=== PATIENT | male | born 1955 | race Caucasian/White ===

== ENCOUNTER 2022-01-18 17:59 | Emergency (ER) | payer BC, SELFPAY ==
--- NOTE | 2022-01-18 18:02 | ED.EAR ---
HPI - Ear Problem General Chief complaint: Ear Stated complaint: Ear Pain Time Seen by Provider: 01/18/22 18:02 Source: patient Mode of arrival: ambulatory Limitations: no limitations History of Present Illness HPI Narrative: Mr. Nino is a 66-year-old male patient presenting to the clinic today with complaints of left ear pain x2 days. He reports that he just came back from [place] today. He has been doing a lot of swimming. He reports he feels as though his hearing is muffled and he is having pain. Related Data Home Medications Medication Instructions Recorded Confirmed lamotrigine 100 mg tablet 100 mg PO DAILY 06/29/19 01/18/22 levetiracetam 1,000 mg tablet 1,000 mg PO DAILY 06/29/19 01/18/22 Allergies Allergy/AdvReac Type Severity Reaction Status Date / Time Penicillins Allergy Unknown Hives Verified 01/18/22 18:14 Review of Systems Review of Systems: Pertinent positives per HPI. Patient denies any fever, chills, rash, headache, visual changes, dizziness, cough, runny nose, sore throat, shortness of breath, chest pain, palpitations, nausea, vomiting, diarrhea, constipation, abdominal pain, or any urinary issues. [facility] Past Medical History Medical History (Updated 01/18/22 @ 18:25 by Sukhi Deshpande APRN) Asthma Exertional shortness of breath History of tobacco abuse HTN (hypertension) Hypercholesterolemia Overweight (BMI 25.0-29.9) Seizure Family History Family History Father Family history of heart disease in male family member before age 55 Patient's father is Mother Hypertension Sibling Asthma Other Cerebrovascular accident Diabetes mellitus Family history of cardiovascular disease Social History Social History Smoking status: Former smoker Second hand tobacco smoke exposure: No Smoking end date: 08/04/92 Alcohol intake: current Comments At the time of my signature, I reviewed and agree with the nursing past medical, surgical, social, and family history. There is no relevant family history pertinent to the patient complaint. Exam Narrative: General: Well-developed, well nourished, in no apparent distress Head: Normocephalic, atraumatic Eyes: Pupils equally round and reactive to light bilaterally, EOM intact, sclera and conjunctive clear, no discharge, lids normal Ears: Right TMs intact and clear, right ear canals clear, left ear canal swollen with white exudate, unable to visualize the left TM, hearing normal. Nose: Nares patent, no discharge, no inflammation, no sinus tenderness. Mouth: Oropharynx without lesions or masses, good dentition, MMM. Neck: Supple, trachea midline, no enlargement of anterior or posterior cervical nodes, no thyroid masses or goiter palpable. Cardio: Regular rate and rhythm, s1 and s2 normal, no murmur appreciated. Resp: Clear to auscultation bilaterally anteriorly and posteriorly, no rhonchi, rales, wheezing or rubs Course Course Emergency Course: Portions of this record may have been created with voice recognition software. Level of Care: Express Care Visit Vital Signs Vital signs: Vital Signs Temperature 36.9 C 01/18/22 18:14 Pulse Rate 85 01/18/22 18:14 Respiratory Rate 16 01/18/22 18:14 Blood Pressure 158/85 H 01/18/22 18:14 Pulse Oximetry 95 01/18/22 18:14 Oxygen Delivery Room Air 01/18/22 18:14 Temperature 36.9 C 01/18/22 18:14 Pulse Rate 85 01/18/22 18:14 Respiratory Rate 16 01/18/22 18:14 Blood Pressure 158/85 H 01/18/22 18:14 Pulse Oximetry 95 01/18/22 18:14 Oxygen Delivery Room Air 01/18/22 18:14 Vital signs reviewed Medical Decision Making MDM Narrative Medical decision making narrative: At the time of visit patient is resting comfortably on the exam table. He has left otitis externa. I will treat with a course of ofloxacin
[2022-01-18 18:14] VITALS: BP 158/85; PULSE 85; RESP 16; TEMP 36.9; O2SAT 95
== END 2022-01-18 18:32 | disposition home or self-care (01) ==
PROVIDERS: Emergency Provider Nurse Practitioner Family; PCP Internal Medicine
DX: H60.392 Other infective otitis externa, left ear (principal); Z87.891 Personal history of nicotine dependence; J45.909 Unspecified asthma, uncomplicated; I10 Essential (primary) hypertension; E78.00 Pure hypercholesterolemia, unspecified; G40.909 Epilepsy, unspecified, not intractable, without status epilepticus
CPT/HCPCS: 99213; G0463

== ENCOUNTER 2023-06-19 08:07 | Outpatient (CLI) | payer MEDICARE, SELFPAY ==
--- NOTE | ~2023-06-19 | XR_ITS ---
EXAMINATION: XR small bowel follow through DATE: 06/19/2023 13:14 INDICATION: Chronic diarrhea. TECHNIQUE: Oral contrast was administered, and a time course of radiographs of the abdomen was obtain ed. Fluoroscopy of the small bowel was not performed. Fluoroscopy exposure time was 0 minutes. The to serafin number of images was 10. COMPARISON: Chest CT 07/16/2018 FINDINGS: There are multiple dilated loops of small bowel. At 4.5 hours, contrast has not progressed beyond pro ximal ileum. There is fold thickening of loops of ileum. The colon is decompressed. There is a total left hip arthroplasty. IMPRESSION: 1. Dilated small bowel with slow transit of contrast that has only reached the proximal ileum at 4.5 hours. These findings may be adynamic ileus or small bowel obstruction. Consider CT abdomen and pelvi s with contrast. Reviewed, dictated and finalized at location A. TICS MANAGER IMPRESSION: 1. Dilated small bowel with slow transit of contrast that has only reached the proximal ileum at 4.5 hours. These findings may be adynamic ileus or small dilshad l obstruction. Consider CT abdomen and pelvis with contrast.
== END 2023-06-19 08:08 | disposition home or self-care (01) ==
PROVIDERS: PCP Internal Medicine; Visit Provider Internal Medicine Gastroenterology
DX: R19.7 Diarrhea, unspecified (principal); K59.89 Other specified functional intestinal disorders
CPT/HCPCS: 74250

== ENCOUNTER 2023-07-03 09:31 | Outpatient (CLI) | payer MEDICARE, SELFPAY ==
--- NOTE | ~2023-07-03 | CT_ITS ---
CT of the Abdomen and Pelvis: Indication: Abdominal pain, diarrhea Technique: 2.5 mm axial scans were obtained through the abdomen and pelvis following intravenous adm inistration of 100 cc of Omnipaque 350. Dose reduction technique was used on this scan by utilizing a utomated exposure control and iterative reconstruction technique. The dose-length product (DLP) was 7 28.17 mGy-cm. Findings: Scans through the lung bases are unremarkable. The liver, spleen, pancreas, and adrenal glands are within normal limits. Bilateral parapelvic renal cysts are present. Gallbladder is absent. There are atherosclerotic calcifications of the aorta. Ther e is apparent occlusion of the majority of the left common iliac artery. No lymphadenopathy. No bowel obstruction or bowel wall thickening. There is no evidence to suggest acute appendicitis. Images through the pelvis are mildly degraded by streak artifact from left hip arthroplasty. Urinary bladder unremarkable. Prostate gland mildly enlarged. No ascites. Impression: No acute abnormality identified. 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 Enlarged prostate gland. Reviewed, dictated and finalized at [facility]. CE REPAIR TECHNICIAN Impression: No acute abnormality identified. 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 Enlarged prostate gland.
[2023-07-03 09:49] LABS: Estimated Glomerular Filt Rate 38
== END 2023-07-03 09:32 | disposition home or self-care (01) ==
LOC: ANHIMG 09:36
PROVIDERS: PCP Internal Medicine; Visit Provider Internal Medicine Gastroenterology
DX: R19.7 Diarrhea, unspecified (principal); N40.0 Benign prostatic hyperplasia without lower urinary tract symptoms
CPT/HCPCS: 74177; Q9967

== ENCOUNTER 2023-08-05 13:33 | Emergency (ER) | payer MEDICARE, SELFPAY ==
--- NOTE | 2023-08-05 13:40 | ED.SKABFB ---
HPI - Skin/Abscess/Foreign Bdy General Chief complaint: Wound/Laceration Stated complaint: Rash Time Seen by Provider: 08/05/23 13:40 Source: patient Mode of arrival: ambulatory Limitations: no limitations History of Present Illness HPI narrative: Patient is a 67-year-old male who presents with bite vania to right buttocks. [place] he was bit. Patient states area of tenderness has grown. Patient states states the redness has side as well. Have been applying Neosporin. Denies any drainage from wound. Related Data Home Medications Medication Instructions Recorded Confirmed lamotrigine 100 mg tablet 100 mg PO DAILY 06/29/19 08/05/23 levetiracetam 1,000 mg tablet 1,000 mg PO DAILY 06/29/19 08/05/23 fexofenadine 60 mg tablet (Margy 60 mg PO Q12H 09/16/22 08/05/23 Allergy) albuterol sulfate 90 mcg/actuation 1 - 2 puff inhalation Q4-6H 08/05/23 08/05/23 aerosol inhaler shortness of breath or wheezing topiramate 25 mg sprinkle capsule 25 mg PO DIRECTED 08/05/23 08/05/23 Allergies Allergy/AdvReac Type Severity Reaction Status Date / Time Penicillins Allergy Unknown Hives Verified 08/05/23 13:52 Review of Systems Review of Systems: All systems reviewed & are unremarkable except as noted in HPI and below Constitutional: Constitutional: Denies body ache(s), Denies chills, Denies fatigue, Denies fever(s), Denies headache(s), Denies malaise and Denies weakness Eyes: Eyes: Denies blurry vision, Denies irritation and Denies loss of vision ENT: Denies otalgia, Denies headache(s), Denies nasal discharge, Denies sinus pain and Denies sore throat Cardiovascular: Cardiovascular: Denies chest pain, Denies irregular heart rhythm and Denies dyspnea Respiratory: Respiratory: Denies dyspnea Gastrointestinal: Gastrointestinal: Denies abdominal pain, Denies melena, Denies hematochezia, Denies diarrhea, Denies nausea and Denies vomiting Musculoskeletal: Musculoskeletal: Denies back pain, Denies myalgias and Denies arthralgias Integumentary/Breasts: Skin/Breast: Denies pruritus, Denies rash and Reports wounds Neurologic: Denies headache(s), Denies loss of vision and Denies weakness Psychiatric: Psychiatric: Reports no additional psychiatric complaints Endocrine: Endocrine: Denies fatigue PMFSH Past Medical History Medical History Asthma Exertional shortness of breath History of tobacco abuse HTN (hypertension) Hypercholesterolemia Overweight (BMI 25.0-29.9) Seizure Family History Family History Father Family history of heart disease in male family member before age 55 Patient's father is Mother Hypertension Sibling Asthma Other Cerebrovascular accident Diabetes mellitus Family history of cardiovascular disease Social History Social History Smoking status: Former smoker Second hand tobacco smoke exposure: No Smoking end date: 08/04/92 Alcohol intake: current Substance use: never Lack of Transportation: No Lack of Food: Never True Current Housing: Decline to Answer Concerned About Future Housing: No Difficulty Paying Gas/Electric Bills: No Difficulty Paying for Meds: No Currently Unemployed: No Education: High School Diploma/GED Difficulty w/ Childcare or Family Care: No Comments At time of signature, agree with nursing past medical, surgical, social and family history. There is no relevant family history pertinent to the presenting complaint. Exam Const: General: cooperative, healthy appearing, comfortable, no acute distress and well nourished Nutritional Appearance: well nourished Orientation/consciousness: patient oriented x3 Limitations: no limitations HENMT: Head: normal to inspection, normocephalic and atraum
[2023-08-05 13:47] VITALS: BP 120/62; PULSE 76; RESP 16; TEMP 36.6; O2SAT 99
== END 2023-08-05 14:22 | disposition home or self-care (01) ==
PROVIDERS: Emergency Provider Nurse Practitioner Family; PCP Internal Medicine
DX: L03.317 Cellulitis of buttock (principal); I10 Essential (primary) hypertension; Z79.899 Other long term (current) drug therapy; Z87.891 Personal history of nicotine dependence
CPT/HCPCS: 99213; G0463

== ENCOUNTER 2025-02-23 12:54 | Outpatient (CLI) | payer MEDICARE, SELFPAY ==
--- NOTE | ~2025-02-23 | XR_ITS ---
XR abdomen/kub 1V 02/23/2025 13:17 Indication: Irritable bowel syndrome Procedure: KUB Comparison: 06/19/2023 Findings: Bowel gas pattern nonobstructive. There is a left total hip arthroplasty. No evidence for r enal stones. Mild lumbar spondylosis. No acute osseous abnormality. There are pelvic phleboliths. Impression: 1: Nonobstructive bowel gas pattern. Reviewed, dictated and finalized at location A. Impression: 1: Nonobstructive bowel gas pattern.
--- OUTSIDE RECORDS SUMMARY | 2025-02-23 13:06 | XMS_ITS | Encounter Summary ---
Author Organization [facility] Address [address] [place] [address] Care Team Providers Care Medical Sales Consultant Name Role Phone Mark Cadet MD Unavailable [phone] eZv Valente MD Primary Care Provider [phone] Encounter Details Date Type Department Care Team (Late st Contact Info) Description 08/09/2021 Telephone [facility] Radiology [address] [place] [address] Junior Webber MD PhD [address] [place], [place] [id number] Social History Tobacco Use Types Packs/Day Years Used Date Smoking Tobacco: Former Cigarettes 0.3 20 1 969 - 1989 Smokeless Tobacco: Never Alcohol Use Standard Drinks/Week Comments Yes 0 (1 standard drink = 0.6 oz pur e alcohol) AUDIT-C Answer Date Recorded Q1: How often do you have a drink containing alc ohol? 2-4 times a month 07/12/2021 Q2: How many drinks containi ng alcohol do you have on a typical day when you are drinking? 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
--- OUTSIDE RECORDS SUMMARY | 2025-02-23 13:06 | XMS_ITS | Clinical Summary ---
Author Organization [facility] Address [address] [place] [address] Care Team Providers Care Marine Photographer Name Role Phone Mark Cadet MD Unavailable [phone] Zev Valente MD Primary Care Provider [phone] Allergies Active Allergy Reactions Criticality Noted Date Comments Penicillins Hives Medium 06/02/2019 Medications lisinopril (PRINIVIL,ZESTR IL) 10 mg tablet Take 1 tablet (10 mg total) by mouth daily 3 03/29/[address] (ACIPHEX) 20 mg EC tablet Take 1 tablet (20 mg total) by mouth daily Active Anoro Ellipta 62.5-25 mcg/actuation blister with device 1 puff daily 09/23/19 22 Active aspirin 81 mg enteric coated tabletIndicatio ns:Cerebrovascu lar accident (CVA), unspecified mechanism (HCC) TAKE 1 BY MOUTH ONCE DAILY 90 tablet 03/24/20 23 Active albuterol HFA (PROVENTIL HFA,VENTOLIN HFA,PROAIR HFA) 90 mcg/actuation inhaler INHALE 1 TO 2 PUFFS BY MOUTH EVERY 4 TO 6 HOURS NEEDED FOR SHORTNESS OF BREATH FOR WHEEZING 05/21/20 23 Active atorvastatin (LIPITOR) 80 mg tablet Take 1 tablet by mouth once daily 90 tablet 09/22/19 24 Active lamoTRIgine (LaMICtal) 100 mg tabletIndicatio ns:Focal epilepsy with impairment of consciousness, intractable (HCC) Take 3 tablets (300 mg total) by mouth 2 (two) times a day 540 tablet 3 01/27/20 25 026 Active levETIRAcetam (KEPPRA) 1,000 mg tabletIndicatio ns:Complex partial 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-clonic seizures (HCC) Take 2.5 tablets (2,500 mg total) by mouth 2 (two) times a day 450 tablet 3 01/27/20 25 026 Active topiramate (TOPAMAX) 25 mg capsuleIndicati ons:Focal epilepsy with impairment of consciousness, intractable (HCC) Take 2 capsules (50 mg total) by mouth 2 (two) times a day 360 capsule 3 01/27/20 25 026 Active ergocalciferol (VITAMIN D) 50,000 unit capsule 3 05/12/20 19 025 Discontinued lamoTRIgine (LaMICtal) 100 mg tabletIndicatio ns:Focal epilepsy with impairment of consciousness, intractable (HCC) Take 3 tablets (300 mg total) by mouth 2 (two) times a day 540 tablet 3 07/07/20 24 025 Discontinued(Re order) levETIRAcetam (KEPPRA) 1,000 mg tabletIndicatio ns:Complex partial 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-clonic seizures (HCC) Take 2.5 tablets (2,500 mg total) by mouth 2 (two) times a day 450 tablet 3 07/07/20 24 025 Discontinued(Re order) topiramate (TOPAMAX) 25 mg capsuleIndicati ons:Focal epilepsy with impairment of consciousness, intractable (HCC) Take 2 capsules (50 mg total) by mouth 2 (two) times a day 360 capsule 3 07/07/20 24 025 Discontinued(Re order) Active Problems Problem Noted Date Diagnosed Date History of ischemic stroke 07/22/2023 Focal epilepsy with impairme nt of consciousness, intractable 05/30/2020 Assessment & Plan (05/30/2021 8:57 AM CDT): Patient continues on lamotrigine 200 mg b.i.d. and levetiracetam 2000 mg b.i.d. for complex partial seizure secondary generalization. He sites no tolerability issues and reports regular medical compliance. Despite continued treatment he is having recurrent stereotyped episodes of visual blurring followed by altered awareness clinically suspicious for ongoing complex partial seizure. After further discussion with at this visit as well as prior visits, I will pursue a tertiary epilepsy evaluation to see if these episodes may in fact be complex partial seizures. Previous EEGs have been unrevealing as have MRIs. I will refer him to [facility] epilepsy service for further investigation. He will follow-up in general neurology clinic based on the results in outcome of his epilepsy evaluation. In the interim I have refilled both his lamotrigine and levetiracetam at present dosing. Assessment & Plan (05/30/2020 10:56 AM CDT): Patient is a former patient of [facility]. Prior medical records from [facility] have been reviewed during today's visit with patient to facilitate transfer in care. Since last seen a [facility] earlier this year, he has been using lamotrigine 150 mg b.i.d. in addition to levetiracetam 2000 mg b.i.d.. Despite regular medical compliance he still had several additional partial complex seizures. He knows of no alleviating or exacerbating factors. He develops no warning prior to the events. A couple of the episodes have been witnessed by his spouse. Given the persistence and seizures I will further increase his lamotrigine to 200 mg b.i.d. maintaining his levetiracetam in 2000 mg b.i.d.. I did review with him [place] driving restrictions and that he needs to fulfill 6 months seizure-free before resuming driving under [place] guidelines. I will plan on seeing him back in 1 years time period if he would have additional seizures in the interim he is to let this office know. If he does continue to have seizures despite dual therapy, he will likely need referral to a tertiary epilepsy center for further investigation. Thrombocytopenia, unspecified 06/01/2019 Hyperlipidemia 10/07/2017 Hypertensive disorder 10/07/2017 Encounters Date Type Department Care Team Description 01/26/2025 2:00 PM CDT Office Visit [facility] Epilepsy [facility] [address] 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-clonic seizures (HCC) from Last 3 Months Immunizations Immunization Administration Dates Next Due Influenza Virus Vaccine Trivalent 04/04/2019 Surgical History Surgery Date Site/Laterality Comments HIP SURGERY Left GALLBLADDER SURGERY CATARACT EXTRACTION Bilateral Medical History Medical History Date Comments Hypertension Hypercholesteremia Epilepsy (HCC) Acid reflux Stroke (HCC) 07/22/2023 Cataract Bilateral Family History Medical History Relation Name Comments Asthma Brother Diabetes Father Heart attack Father Heart disease Father Hyperlipidemia Mother Hypertension Mother Stroke Mother Epilepsy Neg Hx Relation Name Status Comments Brother Alive Father Mother Social History Tobacco Use Types Packs/Day Years Used Date Smoking Tobacco: Former Cigarettes 0.3 20 1 969 - 1988 Smokeless Tobacco: Never Alcohol Use Standard Drinks/Week [...] on file 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 Gender Identity Not on file Sexual Orientation Not on file 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 Not on file Not on file Obstetrics History Last Filed Vital Signs Vital Sign Reading Time Taken Comments Blood Pressure 109/68 01/26/2025 1:51 PM CDT Pulse 71 01/26/2025 1:51 PM CDT Temperature 36.6 C (97.9 F) 01/26/2025 1:51 PM CDT Respiratory Rate 16 06/02/2019 2:59 PM CDT Oxygen Saturation 97% 01/26/2025 1:51 PM CDT Inhaled Oxygen Concentration - - Weight 86.6 kg (191 lb) 01/26/2025 1:51 PM CDT Height 170.2 cm (5' 7) 01/26/2025 1:51 PM CDT Body Mass Index 29.91 01/26/2025 1:51 PM CDT Plan of Treatment Health Maintenance Due Date Last Done Comments Colon Cancer Screening-Colonoscopy 1957 Depression Screening 1957 Fall Risk Assessment 1957 Hepatitis C Screening 1957 Prostate Cancer Screening-PSA 1957 DTaP/Tdap/Td Vaccine (1 - Tdap) 1968 Hepatitis B Screening 10/16/1975 Pneumococcal vaccine 65+ (1 of 1 - PCV) 10/16/2007 Zoster Vaccine (1 of 2) 10/16/2007 Abdominal Aortic Aneurysm (A AA) Screen 2022 Well Visit 65+ 2022 Influenza Vaccine (Season Ended) 2025 04/12/2020, 04/04/2019, 07/02/2018, Additional history exists Insurance [place] CHOICE [facility] [place] AETNA SENIOR SUPPLEMENT Care Teams Marine Photographer Relationship Specialty Start Date End Date Zev Valente MD [address] [place] [address] PCP - General Internal Medicine 06/14/19 Mark Cadet MD Medical Oncologist/Returner Hematology and Oncology 06/01/19
--- OUTSIDE RECORDS SUMMARY | 2025-02-23 13:06 | XMS_ITS | Referral Summary ---
Author Organization [facility] Address [address] [place] [address] Care Team Providers Care Core Setter Name Role Phone Mark Cadet MD Unavailable [phone] Zev Valente MD Primary Care Provider [phone] Encounters Date Type Department Care Team Description 01/26/2025 2:00 PM CDT Office Visit [facility] Epilepsy [address] [place] [id number] Junior Webber MD PhD Focal epilepsy with impairment of consciousness, intractable (HCC) (Primary Dx); Complex partial 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-clonic seizures (HCC) from Last 3 Months Allergies Active Allergy Reactions Criticality Noted Date [...] have MRIs. I will refer him to [facility] epilepsy service for further investigation. He will follow-up in general neurology clinic based on the results in outcome of his epilepsy evaluation. In the interim I have refilled both his lamotrigine and levetiracetam at present dosing. Assessment & Plan (05/30/2020 10:56 AM CDT): Patient is a former patient of [facility]. Prior medical records from [facility] have been reviewed during today's visit with patient to facilitate transfer in care. Since last seen a [facility] earlier this year, he has been [...] mg b.i.d.. I did review with him [place] driving restrictions and that he needs to fulfill 6 months seizure-free before resuming driving under [place] guidelines. I will plan on seeing him back in 1 years time period if he would have additional seizures in the interim he is to let this office know. If he does continue to have seizures despite dual therapy, he will likely need referral to a tertiary epilepsy center for further investigation. 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
--- OUTSIDE RECORDS SUMMARY | 2025-02-23 13:06 | XMS_ITS | Continuity of Care Document ---
Author Organization [facility] Address [address] [place] [address] [address] [place] [address] Phone Care Team Providers Care Headstart Teacher Name Role Phone Dasia WHEELER MD, Buddy Unavailable Unavailable Procedures Procedure Date OFFICE/OUTPATIENT VISIT, [facility] DILATED EXAM RIGHT EYE DILATED EXAM LEFT EYE Advance Directives Directive Yes / No Effective Date File Name No Information Encounters Encounter Description Practice Location Reason(s) For Visit Diagnoses Date Provider Providers Copied on Encounter OFFICE/OUTPA TIENT VISIT, [facility], [address], [place], [place], [id number], tel:[phone] [facility] [place] No Information 5 Dasia Goodwin. [address] [facility], [address], [place], [place], [id number] , . tel:[phone] Referring Provider: Buddy Forman MD , [address] [facility] [address], [place], [address] . tel:[phone] Family History Family Member Type Diagnosis Age At Onset No Information Payers Payer name Insurance type Covered alliance party ID Authoriza tigeorges(s) AETNA CI [id number] Social History Type Description Quantity Date Captured [...]
[2025-02-23 13:48] LABS: Hematocrit 44.6 % (42.0-52.0); Hemoglobin 14.2 g/dL (14.0-18.0); Immature Platelet Fraction Pct 3.6 % (0.9-11.2); Mean Corpuscular HGB Conc 31.8 g/dl (32-36); Mean Corpuscular Hemoglobin 31.0 pg (26-34); Mean Corpuscular Volume 97.4 fl (80-100); Platelet Count Result 95 k/mm3 (150-375); Red Blood Count 4.58 M/mm3 (4.6-6.20); White Blood Count 5.9 K/mm3 (4.5-10.0)
[2025-02-23 14:08] LABS: Alanine Aminotransferase 52 U/L (6-50); Albumin Level 4.2 g/dL (3.5-5.1); Alkaline Phosphatase 90 U/L (38-126); Anion Gap 9 mmol/L (4-12); Aspartate Amino Transferase 40 U/L (17-59); Bilirubin,Total 0.4 mg/dL (0.2-1.3); Blood Urea Nitrogen 29 mg/dL (9-20); Calcium 9.9 mg/dL (8.4-10.2); Carbon Dioxide 23 mmol/L (22-30); Chloride 111 mmol/L (98-107); Estimated Glomerular Filt Rate 34; Glucose 99 mg/dL (65-110); Lipase 334 U/L (23-300); Potassium 4.2 mmol/L (3.4-5.0); Sodium 143 mmol/L (137-145); Total Protein 7.0 g/dL (6.3-8.2)
[2025-02-23 14:38] LABS: Thyroid Stimulating Hormone Reflex 2.620 uIU/mL (0.465-4.68)
[2025-02-23 14:50] LABS: CRP < 0.5 mg/dL (<1.0)
[2025-02-24 15:09] LABS: Deamidated Gliadin Abs, IgA 3 units (0-19); Deamidated Gliadin Abs, IgG 1 units (0-19); Immunoglobulin A, Qn 119 mg/dL (61-437)
== END 2025-02-23 12:55 | disposition home or self-care (01) ==
PROVIDERS: PCP Internal Medicine; Visit Provider Nurse Practitioner
DX: K58.0 Irritable bowel syndrome with diarrhea (principal); F90.9 Attention-deficit hyperactivity disorder, unspecified type; E78.5 Hyperlipidemia, unspecified
CPT/HCPCS: 36415; 74018; 80053; 82784; 83690; 84443; 85027; 85055; 85652; 86140; 86231; 86258

== ENCOUNTER 2025-04-01 15:04 | Outpatient (CLI) | payer MEDICARE, SELFPAY ==
--- OUTSIDE RECORDS SUMMARY | 2014-08-09 09:00 | XMS_ITS | Continuity of Care Document ---
Author Organization [facility] Address [id number] [place] [address] [address] [place] [address] Phone Care Team Providers Care Shaping Machine Tender Name Role Phone Dasia WHEELER MD, Buddy Unavailable Unavailable Procedures Procedure Date OFFICE/OUTPATIENT VISIT, [facility] DILATED EXAM RIGHT EYE DILATED EXAM LEFT EYE Advance Directives Directive Yes / No Effective Date File Name No Information Encounters Encounter Description Practice Location Reason(s) For Visit Diagnoses Date Provider Providers Copied on Encounter OFFICE/OUTPA TIENT VISIT, [facility], [address], [place], [place], [id number], tel:[phone] [facility] [place] No Information 5 Dasia Goodwin. [address], [address], [place], [place], [address] , . tel:[phone] Referring Provider: Buddy Forman MD , [address], [place], [address] . tel:[phone] Family History Family Member Type Diagnosis Age At Onset No Information Payers Payer name Insurance type Covered democrat ID Authoriza tigeorges(s) AETNA CI [id number] Social History Type Description Quantity Date Captured Comments Sex Male Smoking Status No Information Chief Complaint And Reason For Visit No Information Reason For Referral Reason For Referral No Information History Of Present Illness Encounter Date Complaint History Of Prese nt Illness No Information Functional Status Date Functional Assessmen t No Information Instructions Date Instruction Additional Infor mation No Information Assessments Type Assessment Date No Information Patient Care Teams Name Effective Dates (start - stop) Status Members No Information
--- OUTSIDE RECORDS SUMMARY | 2014-08-09 09:00 | XMS_ITS | Continuity of Care Document ---
Author Organization [facility] Address [address] [place] [address] [address] [place] [address] Phone Care Team Providers Care Field Naturalist Name Role Phone Dasia WHEELER MD, Buddy Unavailable Unavailable Procedures Procedure Date OFFICE/OUTPATIENT VISIT, [facility] DILATED EXAM RIGHT EYE DILATED EXAM LEFT EYE Advance Directives Directive Yes / No Effective Date File Name No Information Encounters Encounter Description Practice Location Reason(s) For Visit Diagnoses Date Provider Providers Copied on Encounter OFFICE/OUTPA TIENT VISIT, [facility], [address], [place], [place], [id number], tel:[phone] [facility] [place] No Information 5 Dasia Goodwin. [address], [address], [place], [place], [address] , . tel:[phone] Referring Provider: Buddy Forman MD , [address], [place], [address] . tel:[phone] Family History Family Member Type Diagnosis Age At Onset No Information Payers Payer name Insurance type Covered green party ID Authoriza tigeorges(s) AETNA CI [id number] Social History Type Description Quantity Date Captured [...]
--- NOTE | ~2025-04-01 | XR_ITS ---
XR knee LT 3V 04/01/2025 15:22 Indication: Left knee pain Procedure: 4 views left knee Comparison: 11/02/2018 Findings: There is an old healed distal femur fracture. There is severe osteoarthritis of the left knee. No acute fracture or traumatic malalignment. No joint effusion. Impression: 1: Severe tricompartment osteoarthritis of the left knee. Reviewed, dictated and finalized at location O. Impression: 1: Severe tricompartment osteoarthritis of the left knee.
--- OUTSIDE RECORDS SUMMARY | 2025-04-01 15:02 | XMS_ITS | Clinical Summary ---
Author Organization [facility] Address [address] [place] [address] Care Team Providers Care Tafe Registrar Name Role Phone Mark Cadet MD Unavailable Zev Valente MD Primary Care Provider [phone] Allergies Active Allergy Reactions Criticality Noted Date Comments Penicillins Hives Medium 06/02/2019 Medications lisinopril (PRINIVIL,ZESTRI L) 10 mg tablet Take 1 tablet (10 mg total) by mouth daily [address] (ACIPHEX) 20 mg EC tablet Take 1 tablet (20 mg total) by mouth daily Active Anoro Ellipta 62.5-25 mcg/actuation blister with device 1 puff daily 2 Active aspirin 81 mg enteric coated tabletIndication s:Cerebrovascula r accident (CVA), unspecified mechanism (HCC) TAKE 1 BY MOUTH ONCE DAILY 90 tablet 3 Active albuterol HFA (PROVENTIL HFA,VENTOLIN HFA,PROAIR HFA) 90 mcg/actuation inhaler INHALE 1 TO 2 PUFFS BY MOUTH EVERY 4 TO 6 HOURS NEEDED FOR SHORTNESS OF BREATH FOR WHEEZING 3 Active atorvastatin (LIPITOR) 80 mg tablet Take 1 tablet by mouth once daily 90 tablet 4 Active lamoTRIgine (LaMICtal) 100 mg tabletIndication s:Focal epilepsy with impairment of consciousness, intractable (HCC) Take 3 tablets (300 mg total) by mouth 2 (two) times a day 540 tablet 3 06/25/202 5 01/27/20 26 Active levETIRAcetam (KEPPRA) 1,000 mg tabletIndication s:Complex partial 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-clonic seizures (HCC) Take 2.5 tablets (2,500 mg total) by mouth 2 (two) times a day 450 tablet 3 5 01/27/20 26 Active topiramate (TOPAMAX) 25 mg capsuleIndicatio ns:Focal epilepsy with impairment of consciousness, intractable (HCC) Take 2 capsules (50 mg total) by mouth 2 (two) times a day 360 capsule 3 5 01/27/20 26 Active Active Problems Problem Noted Date Diagnosed Date [...] have MRIs. I will refer him to [facility] epilepsy service for further investigation. He will follow-up in general neurology clinic based on the results in outcome of his epilepsy evaluation. In the interim I have refilled both his lamotrigine and levetiracetam at present dosing. Assessment & Plan (05/30/2020 10:56 AM CDT): Patient is a former patient of [facility]. Prior medical records from [facility] have been reviewed during today's visit with patient to facilitate transfer in care. Since last seen a [facility] earlier this year, he has been [...] mg b.i.d.. I did review with him [place] driving restrictions and that he needs to fulfill 6 months seizure-free before resuming driving under [place] guidelines. 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
--- OUTSIDE RECORDS SUMMARY | 2025-04-01 15:02 | XMS_ITS | Encounter Summary ---
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 Gender Identity Not on file Sexual Orientation Not on file 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 Job 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
== END 2025-04-01 15:05 | disposition home or self-care (01) ==
PROVIDERS: PCP Internal Medicine; Visit Provider Internal Medicine
DX: M17.12 Unilateral primary osteoarthritis, left knee (principal)
CPT/HCPCS: 73562

== ENCOUNTER 2025-05-24 00:28 | Day surgery (SDC) | payer MEDICARE, SELFPAY ==
--- OUTSIDE RECORDS SUMMARY | 2014-08-09 09:00 | XMS_ITS | Continuity of Care Document ---
Author Organization [facility] Address [address] [place] [address] [address] [place] [address] Phone Care Team Providers Care Picker Operator Name Role Phone Dasia WHEELER MD, Buddy Unavailable Unavailable Procedures Procedure Date OFFICE/OUTPATIENT VISIT, [facility] DILATED EXAM RIGHT EYE DILATED EXAM LEFT EYE Advance Directives Directive Yes / No Effective Date File Name No Information Encounters Encounter Description Practice Location Reason(s) For Visit Diagnoses Date Provider Providers Copied on Encounter OFFICE/OUTPA TIENT VISIT, [facility], [address] [place] [address] [address], [place], [place], [id number], tel:[phone] [facility] [place] No Information 5 Dasia Goodwin. [address], [address], [place], [place], [id number] , . tel:[phone] Referring Provider: Buddy Forman MD , [address], [place], [address] . tel:[phone] Family History Family Member Type Diagnosis Age At Onset No Information Payers Payer name Insurance type Covered republican ID Authoriza tigeorges(s) AETNA CI [id number] Social History Type Description Quantity Date Captured [...]
[2025-05-18 16:21] VITALS: BMI 31.1
--- OUTSIDE RECORDS SUMMARY | 2025-05-24 00:30 | XMS_ITS | Encounter Summary ---
Author Organization [facility] Healthcare Address [address] [place] [address] Care Team Providers Care Rn Manager Name Role Phone Mark Cadet MD Unavailable Zev Valente MD Primary Care Provider [phone] Encounter Details Date Type Department Care Team (Late st Contact Info) Description 08/09/2021 Telephone 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 Gender Identity Not on file Sexual Orientation Not on file 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 Job End Date Retired [employer] Not on file Not on file Not on file documented as of this encounter Plan of Treatment Not on file documented as of this encounter Visit Diagnoses Not on filedocumented in this encounter Care Teams Rn Manager Relationship Specialty Start Date End Date Zev Valente MD [address] [facility] [address] [facility] [address] [place] [address] PCP - General Internal Medicine 06/14/19 Mark Cadet MD Medical Oncologist/Senior Buyer Planner Hematology and Oncology 06/01/19 documented as of this encounter
--- OUTSIDE RECORDS SUMMARY | 2025-05-24 00:31 | XMS_ITS | Clinical Summary ---
Author Organization [facility] Address [address] [place] [address] Care Team Providers Care Cut Off Saw Operator Name Role Phone Mark Cadet MD Unavailable [phone] Zev Valente MD Primary Care Provider [phone]- [phone] Allergies Active Allergy Reactions Criticality Noted Date [...] have MRIs. I will refer him to [facility] epilepsy service for further investigation. He will follow-up in general neurology clinic based on the results in outcome of his epilepsy evaluation. In the interim I have refilled both his lamotrigine and levetiracetam at present dosing. Assessment & Plan (05/30/2020 10:56 AM CDT): Patient is a former patient of [facility]. Prior medical records from [facility] have been reviewed during today's visit with patient to facilitate transfer in care. Since last seen a [facility] earlier this year, he has been [...] mg b.i.d.. I did review with him [place] driving restrictions and that he needs to fulfill 6 months seizure-free before resuming driving under [place] guidelines. 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
[2025-05-24 08:54] VITALS: BP 147/71; PULSE 65; RESP 18; TEMP 36.6; O2SAT 95; BMI 30.9
[2025-05-24] MEDS: SIMETHICONE ORAL SUSPENSION 20 MG/0.3 ML 30 ML BOTTLE 1.8 ML PO (09:09)
[2025-05-24] MEDS: LACTATED RINGERS 1,000 ML 150 ML IV CONT (09:10)
--- NOTE | 2025-05-24 09:26 | WPDANESEPPF ---
Anes - Initial Pre Proc Eval Procedure: Operation Date: 05/24/25 10:00 Proposed Procedures p EGD & Screening Colonoscopy - Hair Bolanos MD Date/Time: 05/24/25 09:26 Surgeon: Hair Bolanos MD Pre Op Diagnosis: IBS, Diarrhea, unspecified Patient Data Age: 69 Gender: M Height: 1.65 m Weight: 84.2 kg Last Vital Signs Temp 36.6 C 05/24/25 08:54 Pulse 65 05/24/25 08:54 Resp 18 05/24/25 08:54 BP 147/71 H 05/24/25 08:54 Pulse Ox 95 05/24/25 08:54 O2 Del Method Room Air 05/24/25 08:54 Allergies Allergy/AdvReac Type Severity Reaction Status Date / Time Penicillins Allergy Unknown Hives Verified 05/24/25 08:52 Home Medications ?Medication ?Instructions ?Recorded ?Confirmed ?Type lamotrigine 100 mg tablet 300 mg PO BID 06/29/19 05/24/25 History levetiracetam 1,000 mg tablet 1,500 mg PO Q12H 06/29/19 05/24/25 History fexofenadine 60 mg tablet (Margy 60 mg PO Q12H 09/16/22 05/18/25 History Allergy) albuterol sulfate 90 mcg/actuation 1 - 2 puff inhalation Q4-6H 08/05/23 05/24/25 History aerosol inhaler shortness of breath or wheezing topiramate 25 mg sprinkle capsule 25 mg PO DIRECTED 08/05/23 05/24/25 History umeclidinium 62.5 mcg-vilanterol See Rx Instructions .Route 06/25/24 05/24/25 Rx 25 mcg/actuation powdr for .COMPLEX #60 ea inhalation (Anoro Ellipta) atorvastatin 80 mg tablet 80 mg PO DAILY #90 tabs 12/10/24 05/24/25 Rx rabeprazole 20 mg tablet,delayed 20 mg PO DAILY #90 tabs 12/23/24 05/24/25 Rx release dicyclomine 10 mg capsule 10 mg PO QID #120 caps 02/23/25 05/24/25 Rx rifaximin 550 mg tablet (Xifaxan) 550 mg PO TID 14 days #42 tabs 02/23/25 05/18/25 Rx clindamycin HCl 300 mg capsule 300 mg PO ONCE #2 caps 03/14/25 05/24/25 Rx tramadol 50 mg tablet 50 mg PO Q8H PRN pain #40 tabs 03/14/25 05/24/25 Rx lisinopril 20 mg tablet See Rx Instructions .Route 03/28/25 05/24/25 Rx .COMPLEX #90 tabs aspirin 81 mg tablet,delayed 81 mg PO DAILY 05/18/25 05/24/25 History release (Adult Aspirin Regimen) Patient hx anesthesia problems: none Family hx anesthesia problems: none Results Review: All pre-operative results and documents have been reviewed as part of the pre-operative evaluation. [facility] Past Medical History Medical History BMI 31.0-31.9,adult Thrombocytopenia Cough Unspecified convulsions Thyroid enlargement Pure hypercholesterolemia Post-traumatic osteoarthritis of left knee Pleural effusion on left Other fatigue Other chronic pain Nonallergic rhinitis Hyperglycemia Generalized abdominal pain Essential (primary) hypertension Encounter for screening for malignant neoplasm of prostate Chronic pain of left knee Aftercare following left hip joint replacement surgery GERD (gastroesophageal reflux disease) Diverticulosis Colon cancer screening History of tobacco abuse Exertional shortness of breath Overweight (BMI 25.0-29.9) HTN (hypertension) Asthma Hypercholesterolemia Seizure Surgical History Surgical History Presence of left artificial hip joint Family History Family History Father Family history of heart disease in male family member before age 55 Mother Hypertension Sibling Asthma Other Cerebrovascular accident Diabetes mellitus Family history of cardiovascular disease Social History Social History Smoking status: Former smoker Tobacco type: cigarettes Second hand tobacco smoke exposure: No Smoking end date: 08/04/92 Alcohol intake: current Substance use: never Substance use type: does not use Other substance usage details: occasional Do You Feel Safe in your Home?: Yes Lack of Transportation: No Lack of Food: Never True Current Housing: I Have Housing Concerned About Future Housing: No Difficulty Paying Gas/Electric Bills: No Difficulty Paying for Meds: No Currently Unemployed: No Education: Trade/Vocational Certificate Difficulty w/ Childcare or Family Care: No Living arrangements: with family Occupation/Education: retired 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 Informed Consent: The patient's anesthetic plan and its attendant risks and benefits were discussed with the patient/family/POA. Questions were solicited and answers provided to the satisfaction of the patient/family/POA.
--- NOTE | 2025-05-24 10:07 | PM.IMHP ---
H&P: HPI History of Present Illness Date/Time: 05/24/25 10:07 Chief Complaint: Diarrhea-GERD Narrative: This patient is referred for colonoscopy for the investigation of persistent diarrhea. He has tried multiple medicines including rifaximin in the past. In addition, his last colonoscopy was in 2019, finding polyps. He also has a longstanding history of heartburn, currently controlled with rabeprazole. An EGD was scheduled as well. Review of Systems Review of Systems: All systems reviewed & are unremarkable except as noted in HPI and below PMFSH Past Medical History Medical History BMI 31.0-31.9,adult Thrombocytopenia Cough Unspecified convulsions Thyroid enlargement Pure hypercholesterolemia Post-traumatic osteoarthritis of left knee Pleural effusion on left Other fatigue Other chronic pain Nonallergic rhinitis Hyperglycemia Generalized abdominal pain Essential (primary) hypertension Encounter for screening for malignant neoplasm of prostate Chronic pain of left knee Aftercare following left hip joint replacement surgery GERD (gastroesophageal reflux disease) Diverticulosis Colon cancer screening History of tobacco abuse Exertional shortness of breath Overweight (BMI 25.0-29.9) HTN (hypertension) Asthma Hypercholesterolemia Seizure Surgical History Surgical History Presence of left artificial hip joint Family History Family History Father Family history of heart disease in male family member before age 55 Mother Hypertension Sibling Asthma Other Cerebrovascular accident Diabetes mellitus Family history of cardiovascular disease Social History Social History Smoking status: Former smoker Tobacco type: cigarettes Second hand tobacco smoke exposure: No Smoking end date: 08/04/92 Alcohol intake: current Substance use: never Substance use type: does not use Other substance usage details: occasional Do You Feel Safe in your Home?: Yes Lack of Transportation: No Lack of Food: Never True Current Housing: I Have Housing Concerned About Future Housing: No Difficulty Paying Gas/Electric Bills: No Difficulty Paying for Meds: No Currently Unemployed: No Education: Trade/Vocational Certificate Difficulty w/ Childcare or Family Care: No Living arrangements: with family Occupation/Education: retired 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 Spiritual care concerns: No Meds Home Medications and Allergies Home Medications ?Medication ?Instructions ?Recorded ?Confirmed ?Type lamotrigine 100 mg tablet 300 mg PO BID 06/29/19 05/24/25 History levetiracetam 1,000 mg tablet 1,500 mg PO Q12H 06/29/19 05/24/25 History fexofenadine 60 mg tablet (Margy 60 mg PO Q12H 09/16/22 05/18/25 History Allergy) albuterol sulfate 90 mcg/actuation 1 - 2 puff inhalation Q4-6H 08/05/23 05/24/25 History aerosol inhaler shortness of breath or wheezing topiramate 25 mg sprinkle capsule 25 mg PO DIRECTED 08/05/23 05/24/25 History umeclidinium 62.5 mcg-vilanterol See Rx Instructions .Route 06/25/24 05/24/25 Rx 25 mcg/actuation powdr for .COMPLEX #60 ea inhalation (Anoro Ellipta) atorvastatin 80 mg tablet 80 mg PO DAILY #90 tabs 12/10/24 05/24/25 Rx rabeprazole 20 mg tablet,delayed 20 mg PO DAILY #90 tabs 12/23/24 05/24/25 Rx release dicyclomine 10 mg capsule 10 mg PO QID #120 caps 02/23/25 05/24/25 Rx rifaximin 550 mg tablet (Xifaxan) 550 mg PO TID 14 days #42 tabs 02/23/25 05/18/25 Rx clindamycin HCl 300 mg capsule 300 mg PO ONCE #2 caps 03/14/25 05/24/25 Rx tramadol 50 mg tablet 50 mg PO Q8H PRN pain #40 tabs 03/14/25 05/24/25 Rx lisinopril 20 mg tablet See Rx Instructions .Route 03/28/25 05/24/25 Rx .COMPLEX #90 tabs aspirin 81 mg tablet,delayed 81 mg PO DAILY 05/18/25 05/24/25 History release (Adult Aspirin Regimen) Allergies Allergy/AdvReac Type Severity Reaction Status Date / Time Penicillins Allergy Unknown Hives Verified 05/24/25 08:52 Vital Signs Vital Signs - 24 hr 05/24/25 08:54 Temperature 97.9 F Pulse Rate 65 Respiratory Rate 18 Blood Pressure 147/71 H Pulse Oximetry 95 Oxygen Delivery Room Air Exam Const: General: cooperative and healthy appearing Resp: Effort & Inspection: normal respiratory effort and able to speak in complete sentences Auscultation: clear to auscultation bilaterally Cardio: Rate: regular rate Rhythm: regular rhythm GI: Inspection: normal to inspection GI Palp: No No hepatosplenomegaly present Auscultation: normal bowel sounds Rectal Exam: deferred Skin: General skin exam: normal color Psych: Appearance: grossly normal Mental Status: mental status grossly normal Assessment and Plan Assessment and plan (1) GERD (gastroesophageal reflux disease): Code(s): K21.9 - Gastro-esophageal reflux disease without esophagitis Status: Acute Assessment and Plan: The patient is deemed a good candidate for the procedure. Consent signed. Will proceed. (2) Irritable bowel syndrome with diarrhea: Code(s): K58.0 - Irritable bowel syndrome with diarrhea Status: Acute
[2025-05-24] MEDS: BENZOCAINE (*SP) 60 ML SPRAY CAN (HURRICAINE) 1 SPRAY MUCOUS MEM (10:18)
--- NOTE | 2025-05-24 10:33 | S_PTH ---
PATIENT: Carlos Nino LOC: [facility] U#:[id number] AGE/SX: 69/M ROOM: RE05/24/[address]: Hair Bolanos MD : 1955 BED: DIS: 05/24/2025 SPEC #: [id number] RECD: 05/24/25 12:47 STATUS: FRANTZ REQ #: [id number] JAZLYN: 05/24/25 10:[address]: Hair Bolanos DEPT: [facility] Surgical RECD BY: Sylvester Dominguez ENTERED: 05/24/25 12:48 SP TYPE: Surgical OTHR DR: Raoul Akhtar, Tissues: A - Polyp B - Gastric Biopsy C - Gastric Biopsy D - Colon Polypectomy Procedures: Hematoxylin and Eosin Stain Gross and Microscopic Level 4 CD 117
--- NOTE | 2025-05-24 10:37 | SUR.OPER ---
EGD: ended 1030 COLON: started 1037
[2025-05-24] MEDS: SIMETHICONE ORAL SUSPENSION 20 MG/0.3 ML 30 ML BOTTLE 0.6 ML IRRIGATION (10:49)
[2025-05-24 10:59] VITALS: BP 142/79; PULSE 64; RESP 16; O2SAT 100
[2025-05-24 11:09] VITALS: BP 141/79; PULSE 64; RESP 14; O2SAT 100
[2025-05-24 11:19] VITALS: BP 137/85; PULSE 67; RESP 17; O2SAT 100
== END 2025-05-24 11:38 | disposition home or self-care (01) ==
PROVIDERS: PCP Internal Medicine; Referring Provider Nurse Practitioner; Visit Provider Internal Medicine Gastroenterology
PROC: 0DJ08ZZ Inspection of Upper Intestinal Tract, Via Natural or Artificial Opening Endoscopic (ICD-10-PCS; CPT 45378; principal; 2025-05-24 10:00)
DX: Z12.11 Encounter for screening for malignant neoplasm of colon (principal); D12.5 Benign neoplasm of sigmoid colon; D13.2 Benign neoplasm of duodenum; K64.8 Other hemorrhoids; K57.30 Diverticulosis of large intestine without perforation or abscess without bleeding; K44.9 Diaphragmatic hernia without obstruction or gangrene; K29.30 Chronic superficial gastritis without bleeding; K21.9 Gastro-esophageal reflux disease without esophagitis; K58.0 Irritable bowel syndrome with diarrhea; I10 Essential (primary) hypertension; J45.909 Unspecified asthma, uncomplicated; E78.00 Pure hypercholesterolemia, unspecified; R73.9 Hyperglycemia, unspecified; D69.6 Thrombocytopenia, unspecified; R56.9 Unspecified convulsions; M17.32 Unilateral post-traumatic osteoarthritis, left knee; R53.83 Other fatigue; G89.29 Other chronic pain; M25.562 Pain in left knee; E66.9 Obesity, unspecified; Z68.30 Body mass index [BMI] 30.0-30.9, adult; Z79.51 Long term (current) use of inhaled steroids; Z79.891 Long term (current) use of opiate analgesic; Z79.82 Long term (current) use of aspirin; Z98.890 Other specified postprocedural states; Z87.891 Personal history of nicotine dependence; Z87.19 Personal history of other diseases of the digestive system; Z82.49 Family history of ischemic heart disease and other diseases of the circulatory system
CPT/HCPCS: 43239; 43251; 45385; 88305; 88342; J1596; J2003; J2704; J7120